=== PATIENT | male | born 1970 | race Caucasian/White ===

== ENCOUNTER 2018-06-04 20:55 | Emergency (ER) | payer MEDICARE ==
[~2018-06-04] VITALS: Ht 180.3 cm; Wt 81.4 kg
[~2018-06-04 20:55] MED LIST: ASPIRIN LOW DOS81 M2 PO; KEPPRA500 M2 PO; PROZAC20 MG PO
[2018-06-04] MEDS ORDERED: PREDNISONE10 MG PO (21:24)
[2018-06-04 21:38] VITALS: BP 125/79
== END 2018-06-04 21:37 | disposition home or self-care (01) ==
LOC: ED 20:55
DX: T63.461A Toxic effect of venom of wasps, accidental (unintentional), initial encounter (principal); M79.89 Other specified soft tissue disorders; I69.334 Monoplegia of upper limb following cerebral infarction affecting left non-dominant side; Y92.009 Unspecified place in unspecified non-institutional (private) residence as the place of occurrence of the external cause

== ENCOUNTER 2020-06-16 11:03 | Emergency (ER) | payer MEDICARE ==
[~2020-06-16] VITALS: Ht 180.3 cm; Wt 83.6 kg
[~2020-06-16 11:03] MED LIST changes: +PREDNISONE10 MG PO
[2020-06-16 11:26] LABS: HEMATOCRIT 40.9 % (39.0-50.0); HEMOGLOBIN 13.3 g/dl (14.0-18.0); IMMATURE GRANULOCYTES 0.4 % (0.0-5.0); MEAN CELL VOLUME 93.4 fL CALC (80.0-100.0); MEAN CORPUSCULAR HGB 30.4 pG CALC (26.0-32.0); MEAN CORPUSCULAR HGB CONC 32.5 g/dL CAL (32.0-36.0); NEUT# 3.38 thou/uL (1.82-7.42); RED BLOOD COUNT 4.38 mill/uL (4.70-6.10); RED CELL DISTRI WIDTH 11.8 % (11.5-15.5); URINE BILIRUBIN - DIPSTICK NEGATIVE (NEGATIVE); URINE BLOOD DIPSTICK NEGATIVE (NEGATIVE); URINE COLOR YELLOW; URINE GLUCOSE - DIPSTICK NEGATIVE (NEGATIVE); URINE KETONE TRACE mg/dL (NEGATIVE); URINE LEUK ESTERASE NEGATIVE (NEGATIVE); URINE NITRITE - DIPSTICK NEGATIVE (Negative); URINE PH 6.5 (4.5-8.0); URINE PROTEIN - DIPSTICK 100 mg/dL (NEG-TRACE); URINE SPECIFIC GRAVITY >=1.030; URINE UROBILINOGEN - DIPSTICK 0.2 E.U./dL (0.2)
[2020-06-16 11:27] LABS: URINE EPITHELIAL CELLS FEW EPI/hpf (0-FEW); URINE MUCUS MODERATE hpf (NONE-FEW)
[2020-06-16 11:48] LABS: ALBUMIN 3.6 g/dL (3.2-5.0); ALKALINE PHOSPHATASE 52 u/l (38-126); ANION GAP 10 (6-22 (CALC)); BILIRUBIN, TOTAL 0.4 mg/dL (0.0-1.4); BUN 12 mg/dL (9-20); BUN/CREATININE RATIO 12 (12-20 (CALC)); CARBON DIOXIDE 27 mmol/l (22-30); CHLORIDE 104 mmol/l (95-108); CPK 114 u/l (52-200); GFR > 60 ML/MIN (>=60 (CALC)); GFR FOR AFR.AMER. > 60 ML/MIN (>=60 (CALC)); SGOT/AST 20 u/l (17-59); SODIUM 137 mmol/l (137-146); TOTAL PROTEIN 6.2 g/dL (6.3-8.2)
[2020-06-16] MEDS ORDERED: EPIPEN 2-P0.3 MG/0.3 IM ×2 (12:15)
[2020-06-16] MEDS ORDERED: PREDNISONE50 MG PO ×2 (12:15)
[2020-06-16 13:08] VITALS: BP 122/79
== END 2020-06-16 13:08 | disposition home or self-care (01) ==
LOC: ED 11:03
PROVIDERS: Family Medicine
DX: T50.Z91A Poisoning by other vaccines and biological substances, accidental (unintentional), initial encounter (principal); Y92.007 Garden or yard of unspecified non-institutional (private) residence as the place of occurrence of the external cause; Z86.73 Personal history of transient ischemic attack (TIA), and cerebral infarction without residual deficits

== ENCOUNTER 2020-06-26 09:13 | Emergency (ER) | payer MEDICARE ==
[~2020-06-26] VITALS: Ht 180.3 cm; Wt 79.0 kg
[~2020-06-26 09:13] MED LIST changes: +EPIPEN 2-P0.3 MG/0.3 IM; +PREDNISONE50 MG PO
[2020-06-26] MEDS ORDERED: ZITHROMAX250 MG PO (11:28)
[2020-06-26] MEDS ORDERED: TESSALON PER100 MG PO ×2 (11:28)
[2020-06-26 11:45] VITALS: BP 124/66
--- NOTE | 2020-06-29 08:46 | NUR ---
Patient called for Covid results. Advised patient that Covid test was negative. Advised patient to return to the ED with SOB or other urgent needs. patient verbalized understanding,
== END 2020-06-26 11:45 | disposition home or self-care (01) ==
LOC: ED 09:13
DX: J06.9 Acute upper respiratory infection, unspecified (principal); Z86.73 Personal history of transient ischemic attack (TIA), and cerebral infarction without residual deficits; Z20.828 Contact with and (suspected) exposure to other viral communicable diseases

== ENCOUNTER 2020-08-18 07:46 | Day surgery (SDC) | payer MEDICARE ==
[~2020-08-18] VITALS: Ht 182.9 cm; Wt 81.6 kg
[~2020-08-18 07:46] MED LIST changes: +TESSALON PER100 MG PO; +ZITHROMAX250 MG PO
[2020-08-18 10:07] VITALS: BP 107/67
== END 2020-08-18 10:21 | disposition home or self-care (01) ==
LOC: ENDO 07:46 → ORM 08:00 → ENDO 09:30 → ORM 10:45 → ENDO 10:45
PROVIDERS: ATTEND Surgery
PROC: 0DJD8ZZ Inspection of Lower Intestinal Tract, Via Natural or Artificial Opening Endoscopic (ICD-10-PCS; principal; 2020-08-18)
DX: R63.4 Abnormal weight loss (principal); Z86.73 Personal history of transient ischemic attack (TIA), and cerebral infarction without residual deficits; Z20.828 Contact with and (suspected) exposure to other viral communicable diseases

== ENCOUNTER 2021-02-27 13:30 | Emergency (ER) | payer MEDICARE ==
[~2021-02-27] VITALS: Ht 182.9 cm; Wt 84.0 kg
[2021-02-27 15:14] VITALS: BP 132/70
== END 2021-02-27 15:18 | disposition home or self-care (01) ==
LOC: ED 13:30
DX: M25.512 Pain in left shoulder (principal); I69.854 Hemiplegia and hemiparesis following other cerebrovascular disease affecting left non-dominant side